=== PATIENT | female | born 1930 | race African-American/Black ===

== ENCOUNTER 2018-01-06 08:35 | Outpatient (CLI) | payer MEDICARE, BC ==
[2018-01-06 10:13] LABS: Hemoglobin 12.7 g/dL (12.0-16.0); Mean Corpuscular HGB CONC 32.9 g/dL (32.0-36.0); Mean Corpuscular Hemoglobin 31.8 pg (27.0-31.0); Mean Corpuscular Volume 96.6 fl (81.0-99.0); Mean Platelet Volume 6.6 fL (7.4-10.4); Platelet Count 192 thou/uL (130-400); RBC Distribution Width 12.1 % (11.5-14.5); Red Blood Cell (RBC) Count 4.01 mill/uL (4.20-5.40)
[2018-01-06 10:21] LABS: INR-International Normal Ratio 1.1; Prothrombin Time 13.9 SEC (12.0-14.7)
[2018-01-06 10:34] LABS: Anion Gap 9 mmol/L (10-20); BUN (Urea Nitrogen) 18 mg/dL (9.8-20.1); Calc. Creatinine Clearance 0 mL/min (70-130); Calcium 9.6 mg/dL (7.8-10.44); Carbon Dioxide 26 mmol/L (23-31); Chloride 107 mmol/L (98-107); Estimated GFR-MDRD 71; Glucose 80 mg/dL (83-110); Potassium 3.9 mmol/L (3.5-5.1); Sodium 138 mmol/L (136-145)
[2018-01-06 11:11] LABS: Bilirubin Negative (Negative); Blood, Urine Negative (Negative); Clarity CLOUDY (Clear); Glucose, Urine (Dipstick) Negative (Negative); Leukocyte Negative (Negative); Nitrite Negative (Negative); Protein, Urine (Dipstick) Negative (Neg-Trace); Specific Gravity, Urine 1.013 (1.002-1.036); Urobilinogen 0.2 mg/dL (0.2-1.0)
[2018-01-06 11:13] LABS: Bacteria/HPF 1+ HPF (None Seen); Hyaline Casts/LPF 0-3 HYALINE CAST LPF (0-3 Hyaline); Pathc Cast-AUWi Flag 0.72 (0-2.49); RBC/HPF 0-3 HPF (0-3)
== END 2018-01-06 08:36 | disposition home or self-care (01) ==
LOC: LABBT 08:35
PROVIDERS: ATTEND Orthopaedic Surgery
DX: Z01.818 Encounter for other preprocedural examination (principal); M17.12 Unilateral primary osteoarthritis, left knee
CPT/HCPCS: 80048; 81001; 85027; 85610; 86850; 86900; 86901; 87081

== ENCOUNTER 2018-03-04 12:14 | Outpatient (CLI) | payer MEDICARE, BC ==
[2018-03-04 14:03] LABS: Hemoglobin 10.9 g/dL (12.0-16.0); Mean Corpuscular HGB CONC 33.7 g/dL (32.0-36.0); Mean Corpuscular Hemoglobin 32.5 pg (27.0-31.0); Mean Corpuscular Volume 96.5 fL (78.0-98.0); Mean Platelet Volume 6.5 fL (7.4-10.4); Platelet Count 139 thou/uL (130-400); RBC Distribution Width 12.5 % (11.5-14.5); Red Blood Cell (RBC) Count 3.35 mill/uL (4.20-5.40)
[2018-03-04 14:07] LABS: INR-International Normal Ratio 1.1; Prothrombin Time 14.3 SEC (12.0-14.7)
[2018-03-04 14:10] LABS: Bilirubin Negative (Negative); Blood, Urine Negative (Negative); Clarity CLEAR (Clear); Glucose, Urine (Dipstick) Negative (Negative); Leukocyte Negative (Negative); Nitrite Negative (Negative); Protein, Urine (Dipstick) Negative (Neg-Trace); Specific Gravity, Urine 1.012 (1.002-1.036); Urobilinogen 0.2 mg/dL (0.2-1.0); pH, Urine 5.5 (5.0-9.0)
[2018-03-04 14:17] LABS: Hyaline Casts/LPF 0-3 HYALINE CAST LPF (0-3 Hyaline); Pathc Cast-AUWi Flag 0.72 (0-2.49); Squamous Epithelial 0-3 HPF (0-3); WBC/HPF 0-3 HPF (0-3)
[2018-03-04 14:26] LABS: Anion Gap 9 mmol/L (10-20); BUN (Urea Nitrogen) 19 mg/dL (9.8-20.1); Calc. Creatinine Clearance 0 mL/min (70-130); Calcium 9.5 mg/dL (7.8-10.44); Carbon Dioxide 26 mmol/L (23-31); Chloride 108 mmol/L (98-107); Estimated GFR-MDRD 63; Glucose 105 mg/dL (83-110); Potassium 3.4 mmol/L (3.5-5.1); Sodium 140 mmol/L (136-145)
[2018-03-04 14:35] LABS: Bacteria/HPF 1+ HPF (None Seen); RBC/HPF 0-3 HPF (0-3)
--- NOTE | 2018-03-05 14:03 | EKG ---
Test Reason : Blood Pressure : / mmHG Vent. Rate : 054 BPM Atrial Rate : 054 BPM P-R Int : 176 ms QRS Dur : 092 ms QT Int : 464 ms P-R-T Axes : 047 -04 027 degrees QTc Int : 440 ms Sinus bradycardia Voltage criteria for left ventricular hypertrophy Abnormal ECG Confirmed by SANDRA IQBAL ([id number]) on 03/05/2018 2:02:41 PM Referred By: IERO Confirmed By:SANDRA IQBAL
== END 2018-03-04 12:15 | disposition home or self-care (01) ==
LOC: LABBT 12:14
PROVIDERS: ATTEND Orthopaedic Surgery
DX: Z01.818 Encounter for other preprocedural examination (principal); M17.12 Unilateral primary osteoarthritis, left knee; R00.1 Bradycardia, unspecified
CPT/HCPCS: 80048; 81001; 85027; 85610; 86850; 86900; 86901; 87081; 93005; 93010

== ENCOUNTER 2018-03-04 13:30 | Inpatient (IN) | payer MEDICARE, BC ==
[2018-03-04 12:28] VITALS: BMI 29.0
[2018-03-09] MEDS ORDERED: Fentanyl 100 MCG/2 ML VIAL ONE ×2 (07:24→09:44)
[2018-03-09] MEDS ORDERED: Midazolam HCl 2 mg/2 ml Vial ONE (07:24)
[2018-03-09] MEDS ORDERED: Ropivacaine 0.2% HCl/PF 20 ML ONE (07:24)
[2018-03-09] MEDS ORDERED: Sodium Chloride 0.9% 100 ML ONE (08:19)
[2018-03-09] MEDS ORDERED: CEFAZOLIN/Water 2 GM/20 ML SYRINGE ONE (08:19)
[2018-03-09] MEDS ORDERED: Vancomycin HCl 1.5 GM in Sodium Chloride 0.9% 250 ML 300 ML IVPB SCH ×2 (08:30→21:00)
[2018-03-09] MEDS ORDERED: HYDROcodone/Acetaminophen 5/325 mg Tablet PO PRN ×2 (09:07)
[2018-03-09] MEDS ORDERED: Ondansetron HCl/PF 4 MG/2 ML Vial IVP PRN ×3 (09:07→12:20)
[2018-03-09] MEDS ORDERED: Promethazine HCl 25 MG/ML VIAL IM PRN ×3 (09:07→12:20)
[2018-03-09] MEDS ORDERED: Zolpidem Tartrate 5 MG TAB PO PRN ×2 (09:07→12:20)
[2018-03-09] MEDS ORDERED: traMADol HCl 50 MG TAB PO PRN ×2 (09:07)
[2018-03-09] MEDS ORDERED: Fentanyl 100 MCG/2 ML VIAL IV PRN (09:08)
[2018-03-09] MEDS ORDERED: Bupivacaine PF 0.5% 30 ML VIAL ONE (09:25)
[2018-03-09] MEDS ORDERED: Promethazine HCl 25 MG/ML VIAL SLOW IVP PRN (10:33)
--- NOTE | 2018-03-09 12:05 | OP ---
DATE OF PROCEDURE: 03/09/2018 PREOPERATIVE DIAGNOSES: Left knee osteoarthrosis with valgus deformity. POSTOPERATIVE DIAGNOSES: Left knee osteoarthrosis with valgus deformity. PROCEDURE PERFORMED: Left total knee replacement using [employer] pinless navigation. SURGEON: Jey Maria M.D. DRAPERY ESTIMATOR: Elliot Adamson PA-C. BLOOD LOSS: Minimal. COMPLICATIONS: None. ANESTHESIA: She had general anesthetic, she also had a preoperative block. IMPLANTS: To the left knee include a [employer] Triathlon knee system, the femur was a size 4 cruciate retaining femur. We used a size 3 universal tibial baseplate. We used a size 3, tibial bearing whic h was a CS tibial bearing and we used an asymmetric 29 x 9 X3 patella. DISPOSITION: She did go to the recovery room in stable condition. INDICATIONS: An 87-year-old female who had a right knee replaced and has done very well with that. At this time, her left knee is hurting her so bad that she is getting to the point where she could no t get around and at this time is wanting to have her knee replaced. PROCEDURE IN DETAIL: After all appropriate consent forms were explained and signed, the patient was t aken back to the Operating Room and at this time was given general anesthetic. Once the level of anes thesia was appropriate, a well-padded tourniquet was placed on the left leg and the leg was then prep ped and draped in standard surgical fashion. The limb was exsanguinated and tourniquet taken up to 30 0 mmHg. Midline incision was made with a 10 blade down through the skin and subcutaneous tissue. Bovi e electrocautery was used to coagulate any brisk venous bleeding. A new blade was used to make a medi al parapatellar arthrotomy. Small subperiosteal release was performed medially and excess fat pad was removed. The knee was flexed up to gain access to the femur. The femur was navigated and distal femo ral resection was made. Epicondylar access was used to align our sizing jig and this was pinned in pl lan. We sized our femur to be a size 4 cruciate retaining femur. 4:1 cutting block was applied and p inned. Anterior and posterior chamfer cuts were then made. We navigated out our proximal tibia and ma de our proximal tibial resection. Spreaders were used to remove any posterior osteophytes off the gabriela k of the femur as well as remaining meniscal tissue. A long alignment jodi was then used to achieve co rrect rotation of our tibial baseplate and a size 3 universal tibial baseplate was chosen. This was p inned in place. We trialed the polyethylene and a size 3 polyethylene gave us full extension and good stability throughout range of motion. Two towel clips and a saw were used to cut our patella. Three lug nuts were drilled and an asymmetric 29 x 9 X3 patella was trialed which sat nicely in the trochle ar groove. We then drilled our femur and punched our tibia. All components were removed. The knee was thoroughly irrigated and dried. Cement was mixed into the cement gun on the back table. Components w ere then placed. The knee was held out in full extension until the cement had dried. All excess bone cement was removed. Multiple #2 Vicryl stitches as well as a Quill was used to close our extensor me chanism. 0 Quill followed by a running Monoderm was then used to close the skin. Surgicel glue was th en used on the skin. Once this had dried, soft tissue dressing was applied to the limb, tourniquet wa s let down, and the toes pinked up nicely. The patient was then awakened and taken to the Recovery R oom in stable condition. All counts were correct at the end of the case. The patient did receive preo perative IV antibiotics. The patient was injected with Exparel for postoperative pain relief.
[2018-03-09] MEDS ORDERED: diphenhydrAMINE 25 MG CAP PO PRN (12:20)
[2018-03-09] MEDS ORDERED: HYDROcodone/Acetaminophen 10/325 mg Tablet PO PRN (12:20)
[2018-03-09] MEDS ORDERED: Tranexamic Acid 1,000 MG in Sodium Chloride 0.9% 100 ML IVPB SCH (12:30)
[2018-03-09] MEDS ORDERED: Ropivacaine 0.5% HCl/PF (150 MG/30 ML VIAL) ONE (13:28)
[2018-03-09] MEDS ORDERED: ePHEDrine/0.9% NaCl/PF SYRINGE 50 mg/10 ml ONE (13:54)
[2018-03-09] MEDS ORDERED: Ondansetron HCl/PF 4 MG/2 ML Vial ONE (13:54)
[2018-03-09] MEDS ORDERED: PROPOFOL 200 MG/20 ML VIAL ONE (13:54)
[2018-03-09] MEDS ORDERED: PHENYLEPHRINE-NS 100 MCG/ML 10 ML SYRINGE ONE (13:54)
[2018-03-09] MEDS ORDERED: Lidocaine 1% PF 5 ML VIAL ONE (13:54)
[2018-03-09] MEDS: Sodium Chloride 0.9% 1,000 ML IV SCH (14:22)
[2018-03-09] MEDS ORDERED: Loperamide HCl 2 MG CAP PO PRN (14:55)
[2018-03-09] MEDS ORDERED: Milk Of Magnesia 30 ML UDCUP PO PRN (14:55)
[2018-03-09] MEDS ORDERED: Artificial Tears 18 DROP/0.9 ML EA EYE PRN (14:55)
[2018-03-09] MEDS ORDERED: Diabetic Tussin 200 MG/10 ML UDCUP PO PRN (14:55)
[2018-03-09] MEDS ORDERED: hydrALAZINE 20 MG/ML VIAL SLOW IVP PRN (14:55)
[2018-03-09] MEDS ORDERED: Loratadine 10 MG TAB PO PRN (14:55)
[2018-03-09] MEDS ORDERED: Mag-Al 1200 mg/1200 mg/30 ML UDCUP PO PRN (14:55)
[2018-03-09] MEDS ORDERED: Senokot 8.6 MG TAB PO PRN (14:55)
[2018-03-09] MEDS ORDERED: Chloraseptic Spray 180 ml Bottle PO PRN (14:55)
[2018-03-09] MEDS ORDERED: Eucerin (Mineral Oil/Petrolatum,White) 30 gm Jar TOP PRN (14:55)
--- NOTE | 2018-03-09 15:08 | PDOC.PN ---
- Subjective Encounter Start Date: 03/09/18 Encounter Start Time: 15:06 -: old records requested/rev Patient seen and examined. No new complaints. No overnight events - Objective Resuscitation Status: Resuscitation Status FULL:Full Resuscitation MAR Reviewed: Yes Vital Signs & Weight: Weight Weight 180 lb Phys Exam - Physical Examination Constitutional: NAD HEENT: PERRLA, moist MMs, sclera anicteric Neck: no JVD, supple Respiratory: no wheezing, no rales, no rhonchi Cardiovascular: RRR, no significant murmur, no rub Gastrointestinal: soft, non-tender, no distention, positive bowel sounds Musculoskeletal: no edema, pulses present LEFT KNEE WITH DRESSING, NERVE BLOCK+ Neurological: non-focal, normal sensation, moves all 4 limbs Psychiatric: normal affect, A&O x 3 Skin: no rash, normal turgor Dx/Plan (1) Status post total left knee replacement Code(s): Z96.652 - PRESENCE OF LEFT ARTIFICIAL KNEE JOINT Status: Acute (2) Dyslipidemia Code(s): E78.5 - HYPERLIPIDEMIA, UNSPECIFIED Status: Chronic (3) GERD (gastroesophageal reflux disease) Code(s): K21.9 - GASTRO-ESOPHAGEAL REFLUX DISEASE WITHOUT ESOPHAGITIS Status: Chronic (4) Hypertension Code(s): I10 - ESSENTIAL (PRIMARY) HYPERTENSION Status: Chronic - Plan cont current plan of care, PT/OT * continue nerve block as per anesthesia * pain control with pain meds * continue PT/OT as per [facility] [place] protocol treatment * selected home medication reconciled * aspirin for DVT prophylaxis * pepcid as needed for GI prophylaxis. * code status- Full code * medication reviewed as below * symptomatic treatment * will monitor medical problems. Review of Systems - Review of Systems Eyes: negative: Pain, Vision Change, Conjunctivae Inflammation, Eyelid Inflammation, Redness, Other ENT: negative: Ear Pain, Ear Discharge, Nose Pain, Nose Discharge, Nose Congestion, Mouth Pain, Mouth Swelling, Throat Pain, Throat Swelling, Other Respiratory: negative: Cough, Dry, Shortness of Breath, Hemoptysis, SOB with Excertion, Pleuritic Pain, Sputum, Wheezing Cardiovascular: negative: chest pain, palpitations, orthopnea, paroxysmal nocturnal dyspnea, edema, light headedness, other Gastrointestinal: negative: Nausea, Vomiting, Abdominal Pain, Diarrhea, Constipation, Melena, Hematochezia, Other Genitourinary: negative: Dysuria, Frequency, Incontinence, Hematuria, Retention , Other Musculoskeletal: negative: Neck Pain, Shoulder Pain, Arm Pain, Back Pain, Hand Pain, Leg Pain, Foot Pain, Other Skin: negative: Rash, Lesions, Saurav, Bruising, Other - Medications/Allergies Allergies/Adverse Reactions: Allergies Allergy/AdvReac Type Severity Reaction Status Date / Time codeine Allergy "feel Verified 03/04/18 12:28 funny" Sulfa (Sulfonamide Allergy "feel Verified 03/04/18 12:28 Antibiotics) funny" Medications: Current Medications Acetaminophen (Tylenol) 650 mg PO Q4H PRN PRN Reason: HOOPER/ T > 101F; Mild Pain (1-3) Hydrocodone Bitart/Acetaminophen ([place] 10/325) 1 tab PO Q4H PRN PRN Reason: Moderate Pain (4-6) Hydrocodone Bitart/Acetaminophen ([place] 10/325) 2 tab PO Q4H PRN PRN Reason: Severe Pain (7-10) Al Hydroxide/Mg Hydroxide (Maalox) 15 ml PO Q4H PRN PRN Reason: Heartburn or Indigestion Artificial Tears (Tears Naturale) 0 drop EA EYE PRN PRN PRN Reason: Dry Eyes Aspirin (Ecotrin) 81 mg PO BID [facility] Atorvastatin Calcium (Lipitor) 20 mg PO DAILY [facility] Cefazolin Sodium (Ancef) 2 gm SLOW IVP 0200,1000,1800 [facility] Stop: 03/10/18 02:01 Diphenhydramine HCl (Benadryl) 25 mg PO Q6H PRN PRN Reason: Itching Famotidine (Pepcid) 20 mg PO DAILY [facility] Fentanyl (Sublimaze) 50 mcg IV Q1H PRN PRN Reason: .MODERATE-SEVERE PAIN Ferrous Gluconate (Fergon) 324 mg PO BID [facility] Guaifenesin (Robitussin Sf) 200 mg PO Q4H PRN PRN Reason: Cough Hydralazine HCl (Apresoline) 10 mg SLOW IVP Q4H PRN PRN Reason: Systolic BP > 180 Bupivacaine HCl 50 ml/ Sodium (Chloride) 100 mls @ 8 mls/hr NERVE BLCK INF [facility] Sodium Chloride (Normal Saline 0.9%) 1,000 mls @ 100 mls/hr IV .Q10H [facility] Last Admin: 03/09/18 14:22 Dose: Not Given Vancomycin HCl 1.5 gm/ Sodium (Chloride) 300 mls @ 200 mls/hr IVPB 2100 [facility] Stop: 03/09/18 22:29 Iron/Minerals/Multivitamins (Theragran M) 1 tab PO DAILY [facility] Loperamide HCl (Imodium) 2 mg PO PRN PRN PRN Reason: Diarrhea/Loose Stools Loratadine (Claritin) 10 mg PO DAILYPRN PRN PRN Reason: Sinus Symptoms Losartan Potassium (Cozaar) 100 mg PO DAILY [facility] Magnesium Hydroxide (Milk Of Magnesium) 30 ml PO DAILYPRN PRN PRN Reason: Constipation Mineral Oil/White Petrolatum (Eucerin Cream) 0 gm TOP BIDPRN PRN PRN Reason: Dry Skin Ondansetron HCl (Zofran) 4 mg IVP Q6H PRN PRN Reason: Nausea/Vomiting Ondansetron HCl (Zofran) 4 mg IVP Q6H PRN PRN Reason: Nausea/Vomiting Phenol (Chloraseptic [place] 180 Ml Bot) 0 ml PO PRN PRN PRN Reason: Sore Throat Promethazine HCl (Phenergan) 12.5 mg IM Q4H PRN PRN Reason: Nausea Promethazine HCl (Phenergan) 12.5 mg IM Q4H PRN PRN Reason: Nausea/Vomiting Senna (Senokot) 2 tab PO HSPRN PRN PRN Reason: Constipation Senna/Docusate Sodium (Senokot S) 2 tab PO BID [facility] Sodium Chloride (Flush - Normal Saline) 10 ml IVF PRN PRN PRN Reason: Saline Flush Tramadol HCl (Ultram) 50 mg PO Q6H PRN PRN Reason: Mild Pain (1-3) Tramadol HCl (Ultram) 100 mg PO Q6H PRN PRN Reason: Mild Pain (1-3) Zolpidem Tartrate (Ambien) 5 mg PO HSPRN PRN PRN Reason: Insomnia History of Present Illnes - History of Present Illness Reason for Visit: medical management History of Present Illness: left total knee replacement - Past Medical History Cardiac: HTN, Hyperlipidemia Gastrointestinal: GERD Musculoskeletal: Osteoarthritis - Past Surgical History Past Surgical History: Hysterectomy, Total Knee Replacement - Past Family History Family History: None - Past Social History Smoke: No Alcohol: None Drugs: None Lives: With Family
[2018-03-09] MEDS: HYDROcodone/Acetaminophen 10/325 mg Tablet PO PRN ×2 (16:05→20:57)
[2018-03-09] MEDS: CEFAZOLIN/Water 2 GM/20 ML SYRINGE SLOW IVP SCH (18:37)
[2018-03-09] MEDS: traMADol HCl 50 MG TAB PO PRN (18:47)
[2018-03-09] MEDS: Aspirin 81 mg Enteric Coated Tablet PO SCH (20:53)
[2018-03-09] MEDS: Ferrous Gluconate 324 MG TAB PO SCH (20:53)
[2018-03-09] MEDS: Senokot S 8.6-50 MG TAB PO SCH (20:53)
[2018-03-10] MEDS: CEFAZOLIN/Water 2 GM/20 ML SYRINGE SLOW IVP SCH (00:01)
[2018-03-10] MEDS: Bupivacaine 0.5% 50 ML in Sodium Chloride 0.9% 50 ML NERVE BLCK SCH ×2 (00:01→13:27)
[2018-03-10] MEDS: traMADol HCl 50 MG TAB PO PRN ×2 (06:21→22:29)
[2018-03-10 06:33] LABS: Hemoglobin 9.3 g/dL (12.0-16.0); Mean Corpuscular HGB CONC 33.9 g/dL (32.0-36.0); Mean Corpuscular Hemoglobin 32.8 pg (27.0-31.0); Mean Corpuscular Volume 96.9 fL (78.0-98.0); Mean Platelet Volume 6.6 fL (7.4-10.4); Platelet Count 122 thou/uL (130-400); RBC Distribution Width 12.7 % (11.5-14.5); Red Blood Cell (RBC) Count 2.83 mill/uL (4.20-5.40); White Blood Cell (WBC) Count 7.1 thou/uL (4.8-10.8)
[2018-03-10] MEDS: Losartan 25 MG TAB PO SCH (09:20)
[2018-03-10] MEDS: Senokot S 8.6-50 MG TAB PO SCH ×2 (09:21→20:16)
[2018-03-10] MEDS: Atorvastatin Calcium 20 MG TAB PO SCH (09:21)
[2018-03-10] MEDS: Ferrous Gluconate 324 MG TAB PO SCH ×2 (09:21→20:16)
[2018-03-10] MEDS: Multivitamin W/ Minerals 1 TAB PO SCH (09:21)
[2018-03-10] MEDS: Famotidine 20 MG TAB PO SCH (09:21)
[2018-03-10] MEDS: Aspirin 81 mg Enteric Coated Tablet PO SCH ×2 (09:21→20:16)
[2018-03-10] MEDS: Sodium Chloride 0.9% 1,000 ML IV SCH ×3 (09:22→20:16)
[2018-03-10] MEDS: HYDROcodone/Acetaminophen 10/325 mg Tablet PO PRN (09:33)
--- NOTE | 2018-03-10 11:12 | PDOC.PN ---
- Subjective Encounter Start Date: 03/10/18 Encounter Start Time: 07:40 Patient seen and examined. No new complaints. No overnight events - Objective Resuscitation Status: Resuscitation Status FULL:Full Resuscitation MAR Reviewed: Yes Vital Signs & Weight: Vital Signs (12 hours) Temp Pulse Resp BP BP Pulse Ox 03/10/18 08:00 99.2 F 66 18 157/76 H 98 03/10/18 04:12 98.2 F 68 16 146/77 H 98 03/10/18 00:00 99.1 F 62 16 138/74 96 Weight Weight 180 lb I&O: 03/09/18 03/10/18 03/11/18 06:59 06:59 06:59 Intake Total 2300 Output Total 1100 Balance 1200 Result Diagrams: 03/10/18 05:47 Phys Exam - Physical Examination Constitutional: NAD HEENT: PERRLA, moist MMs, sclera anicteric Neck: no JVD Respiratory: no wheezing, no rales, no rhonchi Cardiovascular: RRR, no significant murmur, no rub Gastrointestinal: soft, non-tender, no distention, positive bowel sounds Musculoskeletal: no edema, pulses present left knee with dressing and nerve block Neurological: non-focal, normal sensation Psychiatric: normal affect, A&O x 3 Skin: no rash, normal turgor Dx/Plan (1) Status post total left knee replacement Code(s): Z96.652 - PRESENCE OF LEFT ARTIFICIAL KNEE JOINT Status: Acute (2) Dyslipidemia Code(s): E78.5 - HYPERLIPIDEMIA, UNSPECIFIED Status: Chronic (3) GERD (gastroesophageal reflux disease) Code(s): K21.9 - GASTRO-ESOPHAGEAL REFLUX DISEASE WITHOUT ESOPHAGITIS Status: Chronic (4) Hypertension Code(s): I10 - ESSENTIAL (PRIMARY) HYPERTENSION Status: Chronic - Plan cont current plan of care, PT/OT * continue nerve block as per anesthesia * pain control with pain meds * continue PT/OT as per joint [place] protocol treatment * aspirin for DVT prophylaxis * pepcid as needed for GI prophylaxis. * medication reviewed as below * symptomatic treatment * medical problems are stable * discharge per primary team . Review of Systems - Review of Systems Eyes: negative: Pain, Vision Change, Conjunctivae Inflammation, Eyelid Inflammation, Redness, Other ENT: negative: Ear Pain, Ear Discharge, Nose Pain, Nose Discharge, Nose Congestion, Mouth Pain, Mouth Swelling, Throat Pain, Throat Swelling, Other Respiratory: negative: Cough, Dry, Shortness of Breath, Hemoptysis, SOB with Excertion, Pleuritic Pain, Sputum, Wheezing Cardiovascular: negative: chest pain, palpitations, orthopnea, paroxysmal nocturnal dyspnea, edema, light headedness, other Gastrointestinal: negative: Nausea, Vomiting, Abdominal Pain, Diarrhea, Constipation, Melena, Hematochezia, Other Genitourinary: negative: Dysuria, Frequency, Incontinence, Hematuria, Retention , Other Musculoskeletal: negative: Neck Pain, Shoulder Pain, Arm Pain, Back Pain, Hand Pain, Leg Pain, Foot Pain, Other Skin: negative: Rash, Lesions, Saurav, Bruising, Other - Medications/Allergies Allergies/Adverse Reactions: Allergies Allergy/AdvReac Type Severity Reaction Status Date / Time codeine Allergy "feel Verified 03/04/18 12:28 funny" Sulfa (Sulfonamide Allergy "feel Verified 03/04/18 12:28 Antibiotics) funny" Medications: Current Medications Acetaminophen (Tylenol) 650 mg PO Q4H PRN PRN Reason: HOOPER/ T > 101F; Mild Pain (1-3) Hydrocodone Bitart/Acetaminophen ([place] 10/325) 1 tab PO Q4H PRN PRN Reason: Moderate Pain (4-6) Last Admin: 03/10/18 09:33 Dose: 1 tab Hydrocodone Bitart/Acetaminophen ([place] 10/325) 2 tab PO Q4H PRN PRN Reason: Severe Pain (7-10) Al Hydroxide/Mg Hydroxide (Maalox) 15 ml PO Q4H PRN PRN Reason: Heartburn or Indigestion Artificial Tears (Tears Naturale) 0 drop EA EYE PRN PRN PRN Reason: Dry Eyes Aspirin (Ecotrin) 81 mg PO BID [facility] Last Admin: 03/10/18 09:21 Dose: 81 mg Atorvastatin Calcium (Lipitor) 20 mg PO DAILY [facility] Last Admin: 03/10/18 09:21 Dose: 20 mg Diphenhydramine HCl (Benadryl) 25 mg PO Q6H PRN PRN Reason: Itching Last Admin: 03/10/18 00:09 Dose: 25 mg Famotidine (Pepcid) 20 mg PO DAILY [facility] Last Admin: 03/10/18 09:21 Dose: 20 mg Fentanyl (Sublimaze) 50 mcg IV Q1H PRN PRN Reason: .MODERATE-SEVERE PAIN Ferrous Gluconate (Fergon) 324 mg PO BID [facility] Last Admin: 03/10/18 09:21 Dose: 324 mg Guaifenesin (Robitussin Sf) 200 mg PO Q4H PRN PRN Reason: Cough Hydralazine HCl (Apresoline) 10 mg SLOW IVP Q4H PRN PRN Reason: Systolic BP > 180 Bupivacaine HCl 50 ml/ Sodium (Chloride) 100 mls @ 8 mls/hr NERVE BLCK INF [facility] Last Admin: 03/10/18 00:01 Dose: 100 mls Sodium Chloride (Normal Saline 0.9%) 1,000 mls @ 100 mls/hr IV .Q10H [facility] Last Admin: 03/10/18 09:22 Dose: Not Given Iron/Minerals/Multivitamins (Theragran M) 1 tab PO DAILY [facility] Last Admin: 03/10/18 09:21 Dose: 1 tab Loperamide HCl (Imodium) 2 mg PO PRN PRN PRN Reason: Diarrhea/Loose Stools Loratadine (Claritin) 10 mg PO DAILYPRN PRN PRN Reason: Sinus Symptoms Losartan Potassium (Cozaar) 100 mg PO DAILY [facility] Last Admin: 03/10/18 09:20 Dose: 100 mg Magnesium Hydroxide (Milk Of Magnesium) 30 ml PO DAILYPRN PRN PRN Reason: Constipation Mineral Oil/White Petrolatum (Eucerin Cream) 0 gm TOP BIDPRN PRN PRN Reason: Dry Skin Ondansetron HCl (Zofran) 4 mg IVP Q6H PRN PRN Reason: Nausea/Vomiting Last Admin: 03/10/18 10:19 Dose: 4 mg Phenol (Chloraseptic [place] 180 Ml Bot) 0 ml PO PRN PRN PRN Reason: Sore Throat Promethazine HCl (Phenergan) 12.5 mg IM Q4H PRN PRN Reason: Nausea/Vomiting Senna (Senokot) 2 tab PO HSPRN PRN PRN Reason: Constipation Senna/Docusate Sodium (Senokot S) 2 tab PO BID [facility] Last Admin: 03/10/18 09:21 Dose: 2 tab Sodium Chloride (Flush - Normal Saline) 10 ml IVF PRN PRN PRN Reason: Saline Flush Last Admin: 03/10/18 10:20 Dose: 10 ml Tramadol HCl (Ultram) 50 mg PO Q6H PRN PRN Reason: Mild Pain (1-3) Tramadol HCl (Ultram) 100 mg PO Q6H PRN PRN Reason: Mild Pain (1-3) Last Admin: 03/10/18 06:21 Dose: 100 mg Zolpidem Tartrate (Ambien) 5 mg PO HSPRN PRN PRN Reason: Insomnia
--- NOTE | 2018-03-10 13:04 | PRG ---
DATE OF SERVICE: 03/10/2018 SUBJECTIVE: Mari is an 87-year-old female, who is postop day #1 from left total knee arthroplasty. She is comfortable this morning. She has very little in the way of complaints. The patient states t hat she would like to go home in the next couple of days. She ambulated approximately 6 or 8 feet ye evening. OBJECTIVE: VITAL SIGNS: Temperature 96, pulse 61, respiratory rate 18, blood pressure 145/84. GENERAL: She is alert and oriented to person, place, time, and situation. She is grossly nonfocal a nd she is neurovascularly intact in both lower extremities. LABORATORY DATA: Her hemoglobin and hematocrit 9.3 and 27.4 (she has preexisting preoperative anemia ). ASSESSMENT: An 87-year-old female, 1. Postoperative day #1 left total knee arthroplasty. 2. Preoperative anemia, suspect anemia of chronic disease. PLAN: Continue current care. She would like to return home in the next day or two, but let us see h ow she does with physical therapy in terms of distance and independence to decide whether or not she would be an appropriate home discharge.
[2018-03-11] MEDS: Bupivacaine 0.5% 50 ML in Sodium Chloride 0.9% 50 ML NERVE BLCK SCH ×2 (02:10→18:28)
[2018-03-11] MEDS: Sodium Chloride 0.9% 1,000 ML IV SCH ×2 (03:38→16:02)
[2018-03-11 06:07] LABS: Hemoglobin 9.3 g/dL (12.0-16.0); Mean Corpuscular HGB CONC 33.6 g/dL (32.0-36.0); Mean Corpuscular Hemoglobin 32.7 pg (27.0-31.0); Mean Corpuscular Volume 97.1 fL (78.0-98.0); Mean Platelet Volume 6.5 fL (7.4-10.4); Platelet Count 118 thou/uL (130-400); RBC Distribution Width 12.5 % (11.5-14.5); Red Blood Cell (RBC) Count 2.83 mill/uL (4.20-5.40); White Blood Cell (WBC) Count 9.2 thou/uL (4.8-10.8)
[2018-03-11] MEDS: Aspirin 81 mg Enteric Coated Tablet PO SCH ×2 (08:58→22:38)
[2018-03-11] MEDS: Atorvastatin Calcium 20 MG TAB PO SCH (08:58)
[2018-03-11] MEDS: traMADol HCl 50 MG TAB PO PRN (08:59)
[2018-03-11] MEDS: Ferrous Gluconate 324 MG TAB PO SCH ×2 (08:59→22:38)
[2018-03-11] MEDS: Multivitamin W/ Minerals 1 TAB PO SCH (08:59)
[2018-03-11] MEDS: Senokot S 8.6-50 MG TAB PO SCH ×2 (08:59→22:39)
[2018-03-11] MEDS: Famotidine 20 MG TAB PO SCH (09:00)
[2018-03-11] MEDS: Losartan 25 MG TAB PO SCH (09:01)
--- NOTE | 2018-03-11 10:12 | PDOC.PN ---
- Subjective Encounter Start Date: 03/11/18 Encounter Start Time: 08:00 Patient seen and examined. No new complaints. No overnight events - Objective Resuscitation Status: Resuscitation Status FULL:Full Resuscitation MAR Reviewed: Yes Vital Signs & Weight: Vital Signs (12 hours) Temp Pulse Resp BP BP Pulse Ox 03/11/18 08:14 98.8 F 76 16 138/81 94 L 03/11/18 03:45 98.6 F 66 16 144/84 H 98 03/11/18 00:00 98.1 F 66 16 151/87 H 97 Weight Admit Weight 180 lb Weight 180 lb I&O: 03/10/18 03/11/18 03/12/18 06:59 06:59 06:59 Intake Total 2300 1120 Output Total 1100 850 Balance 1200 270 Result Diagrams: 03/11/18 05:21 Phys Exam - Physical Examination Constitutional: NAD HEENT: PERRLA, moist MMs, sclera anicteric Neck: no JVD, supple Respiratory: no wheezing, no rales, no rhonchi Cardiovascular: RRR, no significant murmur, no rub Gastrointestinal: soft, non-tender, no distention, positive bowel sounds Musculoskeletal: no edema, pulses present left knee with dressing and nerve block+ Neurological: non-focal, normal sensation, moves all 4 limbs Psychiatric: normal affect, A&O x 3 Skin: no rash, normal turgor Dx/Plan (1) Status post total left knee replacement Code(s): Z96.652 - PRESENCE OF LEFT ARTIFICIAL KNEE JOINT Status: Acute (2) Dyslipidemia Code(s): E78.5 - HYPERLIPIDEMIA, UNSPECIFIED Status: Chronic (3) GERD (gastroesophageal reflux disease) Code(s): K21.9 - GASTRO-ESOPHAGEAL REFLUX DISEASE WITHOUT ESOPHAGITIS Status: Chronic (4) Hypertension Code(s): I10 - ESSENTIAL (PRIMARY) HYPERTENSION Status: Chronic - Plan cont current plan of care, PT/OT, social worker aide * continue nerve block as per anesthesia * pain control with pain meds * continue PT/OT as per [facility] protocol treatment * aspirin for DVT prophylaxis * protonix as needed for GI prophylaxis. * medication reviewed as below * symptomatic treatment * medical problems are stable * discharge per primary team . * may need SNU placement Review of Systems - Review of Systems Eyes: negative: Pain, Vision Change, Conjunctivae Inflammation, Eyelid Inflammation, Redness, Other ENT: negative: Ear Pain, Ear Discharge, Nose Pain, Nose Discharge, Nose Congestion, Mouth Pain, Mouth Swelling, Throat Pain, Throat Swelling, Other Respiratory: negative: Cough, Dry, Shortness of Breath, Hemoptysis, SOB with Excertion, Pleuritic Pain, Sputum, Wheezing Cardiovascular: negative: chest pain, palpitations, orthopnea, paroxysmal nocturnal dyspnea, edema, light headedness, other Gastrointestinal: negative: Nausea, Vomiting, Abdominal Pain, Diarrhea, Constipation, Melena, Hematochezia, Other Genitourinary: negative: Dysuria, Frequency, Incontinence, Hematuria, Retention , Other Musculoskeletal: negative: Neck Pain, Shoulder Pain, Arm Pain, Back Pain, Hand Pain, Leg Pain, Foot Pain, Other Skin: negative: Rash, Lesions, Saurav, Bruising, Other - Medications/Allergies Allergies/Adverse Reactions: Allergies Allergy/AdvReac Type Severity Reaction Status Date / Time codeine Allergy "feel Verified 03/04/18 12:28 funny" Sulfa (Sulfonamide Allergy "feel Verified 03/04/18 12:28 Antibiotics) funny" Medications: Current Medications Acetaminophen (Tylenol) 650 mg PO Q4H PRN PRN Reason: HOOPER/ T > 101F; Mild Pain (1-3) Hydrocodone Bitart/Acetaminophen ([place] 10/325) 1 tab PO Q4H PRN PRN Reason: Moderate Pain (4-6) Last Admin: 03/10/18 09:33 Dose: 1 tab Hydrocodone Bitart/Acetaminophen ([place] 10/325) 2 tab PO Q4H PRN PRN Reason: Severe Pain (7-10) Al Hydroxide/Mg Hydroxide (Maalox) 15 ml PO Q4H PRN PRN Reason: Heartburn or Indigestion Artificial Tears (Tears Naturale) 0 drop EA EYE PRN PRN PRN Reason: Dry Eyes Aspirin (Ecotrin) 81 mg PO BID [facility] Last Admin: 03/11/18 08:58 Dose: 81 mg Atorvastatin Calcium (Lipitor) 20 mg PO DAILY [facility] Last Admin: 03/11/18 08:58 Dose: 20 mg Diphenhydramine HCl (Benadryl) 25 mg PO Q6H PRN PRN Reason: Itching Last Admin: 03/10/18 00:09 Dose: 25 mg Famotidine (Pepcid) 20 mg PO DAILY [facility] Last Admin: 03/11/18 09:00 Dose: 20 mg Fentanyl (Sublimaze) 50 mcg IV Q1H PRN PRN Reason: .MODERATE-SEVERE PAIN Ferrous Gluconate (Fergon) 324 mg PO BID [facility] Last Admin: 03/11/18 08:59 Dose: 324 mg Guaifenesin (Robitussin Sf) 200 mg PO Q4H PRN PRN Reason: Cough Hydralazine HCl (Apresoline) 10 mg SLOW IVP Q4H PRN PRN Reason: Systolic BP > 180 Bupivacaine HCl 50 ml/ Sodium (Chloride) 100 mls @ 8 mls/hr NERVE BLCK INF [facility] Last Admin: 03/11/18 02:10 Dose: 100 mls Sodium Chloride (Normal Saline 0.9%) 1,000 mls @ 100 mls/hr IV .Q10H [facility] Last Admin: 03/11/18 03:38 Dose: Not Given Iron/Minerals/Multivitamins (Theragran M) 1 tab PO DAILY [facility] Last Admin: 03/11/18 08:59 Dose: 1 tab Loperamide HCl (Imodium) 2 mg PO PRN PRN PRN Reason: Diarrhea/Loose Stools Loratadine (Claritin) 10 mg PO DAILYPRN PRN PRN Reason: Sinus Symptoms Losartan Potassium (Cozaar) 100 mg PO DAILY [facility] Last Admin: 03/11/18 09:01 Dose: 100 mg Magnesium Hydroxide (Milk Of Magnesium) 30 ml PO DAILYPRN PRN PRN Reason: Constipation Mineral Oil/White Petrolatum (Eucerin Cream) 0 gm TOP BIDPRN PRN PRN Reason: Dry Skin Ondansetron HCl (Zofran) 4 mg IVP Q6H PRN PRN Reason: Nausea/Vomiting Last Admin: 03/10/18 10:19 Dose: 4 mg Phenol (Chloraseptic [place] 180 Ml Bot) 0 ml PO PRN PRN PRN Reason: Sore Throat Promethazine HCl (Phenergan) 12.5 mg IM Q4H PRN PRN Reason: Nausea/Vomiting Senna (Senokot) 2 tab PO HSPRN PRN PRN Reason: Constipation Senna/Docusate Sodium (Senokot S) 2 tab PO BID [facility] Last Admin: 03/11/18 08:59 Dose: 2 tab Sodium Chloride (Flush - Normal Saline) 10 ml IVF PRN PRN PRN Reason: Saline Flush Last Admin: 03/10/18 10:20 Dose: 10 ml Tramadol HCl (Ultram) 50 mg PO Q6H PRN PRN Reason: Mild Pain (1-3) Tramadol HCl (Ultram) 100 mg PO Q6H PRN PRN Reason: Mild Pain (1-3) Last Admin: 03/11/18 08:59 Dose: 100 mg Zolpidem Tartrate (Ambien) 5 mg PO HSPRN PRN PRN Reason: Insomnia
--- NOTE | 2018-03-11 13:06 | DIS ---
DATE OF ADMISSION: 03/09/2018 DATE OF DISCHARGE: 03/11/2018 PRIMARY CARE PHYSICIAN: Dr. Alfredo Bauer. DISCHARGE DISPOSITION: Home/ . PRIMARY DISCHARGE DIAGNOSIS: Status post left total knee replacement. SECONDARY DISCHARGE DIAGNOSES: Dyslipidemia, gastroesophageal reflux disease, hypertension. PRIMARY PROCEDURE/OPERATION: Left total knee replacement. RADIOLOGICAL INVESTIGATION: None. SIGNIFICANT LABORATORY DATA: Hemoglobin 9.3. DISCHARGE MEDICATIONS: Aspirin 81 mg p.o. b.i.d. for DVT prophylaxis, Lipitor 20 mg p.o. daily, losartan 100 mg p.o. daily, fish oil 1 capsule daily, ranitidine 150 mg p.o. daily. Pain medication as per primary team. CONTRAINDICATIONS: None. CODE STATUS: Full code. INPATIENT CONSULTANTS: Dr. Maria was primary while in hospital. [facility] Team was consulted for medical comanagement. TEST RESULTS PENDING ON DISCHARGE: None. ALLERGIES: CODEINE and SULFA DRUGS. DISCHARGE PLAN: Post hospital, the patient will follow up with the [facility] and the patient has appointment with Dr. Maria on 03/17/2018 at 9:45 a.m. HOSPITAL COURSE: An 87-year-old female with above-mentioned medical problem who was admitted by Dr. Maria for left total knee replacement, which was done on 03/09/2018 without any complication. Postoperatively, at [facility], Margarita team was consulted for medical comanagement. The patient's medical problem remained stable. She did very well while in hospital. We continued all her previous home medications. We also continued similar home medication upon discharge. The patient requiring SNU placement and that is why with help of counter caser she is planned for discharging to [facility]. The patient is seen and examined at bedside today. Please see my progress note from today for further detail. We will sign off. HARRIETT
[2018-03-11] MEDS: Acetaminophen 325 MG TAB PO PRN (22:38)
[2018-03-12] MEDS: Sodium Chloride 0.9% 1,000 ML IV SCH ×2 (00:21→14:05)
[2018-03-12 06:39] LABS: Mean Corpuscular HGB CONC 34.7 g/dL (32.0-36.0); Mean Corpuscular Hemoglobin 33.5 pg (27.0-31.0); Mean Corpuscular Volume 96.4 fL (78.0-98.0); Mean Platelet Volume 8.2 fL (7.4-10.4); Platelet Count 130 thou/uL (130-400); RBC Distribution Width 12.6 % (11.5-14.5); White Blood Cell (WBC) Count 8.7 thou/uL (4.8-10.8)
[2018-03-12] MEDS: Bupivacaine 0.5% 50 ML in Sodium Chloride 0.9% 50 ML NERVE BLCK SCH (08:43)
[2018-03-12] MEDS: Aspirin 81 mg Enteric Coated Tablet PO SCH (08:50)
[2018-03-12] MEDS: Losartan 25 MG TAB PO SCH (08:50)
[2018-03-12] MEDS: Senokot S 8.6-50 MG TAB PO SCH (08:51)
[2018-03-12] MEDS: Famotidine 20 MG TAB PO SCH (08:51)
[2018-03-12] MEDS: Ferrous Gluconate 324 MG TAB PO SCH (08:51)
[2018-03-12] MEDS: Multivitamin W/ Minerals 1 TAB PO SCH (08:51)
[2018-03-12] MEDS: Atorvastatin Calcium 20 MG TAB PO SCH (08:51)
--- NOTE | 2018-03-12 11:39 | PDOC.PN ---
- Subjective Encounter Start Date: 03/12/18 Encounter Start Time: 07:50 Patient seen and examined. No new complaints. No overnight events - Objective Resuscitation Status: Resuscitation Status FULL:Full Resuscitation MAR Reviewed: Yes Vital Signs & Weight: Vital Signs (12 hours) Temp Pulse Resp BP BP Pulse Ox 03/12/18 08:00 98.6 F 65 16 95 03/12/18 07:50 98.6 F 65 16 137/84 100 03/12/18 03:50 98.0 F 71 16 100 03/12/18 03:43 98.8 F 72 18 125/78 100 03/12/18 03:39 72 125/78 03/11/18 23:57 99.8 F H 71 16 126/77 97 Weight Admit Weight 180 lb Weight 180 lb I&O: 03/11/18 03/12/18 03/13/18 06:59 06:59 06:59 Intake Total 1120 1280 Output Total 850 825 Balance 270 455 Result Diagrams: 03/12/18 05:36 Phys Exam - Physical Examination Constitutional: NAD HEENT: PERRLA, moist MMs, sclera anicteric Neck: no JVD, supple Respiratory: no wheezing, no rales, no rhonchi Cardiovascular: RRR, no significant murmur, no rub Gastrointestinal: soft, non-tender, no distention, positive bowel sounds Musculoskeletal: no edema, pulses present Neurological: non-focal, normal sensation, moves all 4 limbs Psychiatric: normal affect, A&O x 3 Skin: no rash, normal turgor Dx/Plan (1) Status post total left knee replacement Code(s): Z96.652 - PRESENCE OF LEFT ARTIFICIAL KNEE JOINT Status: Acute (2) Dyslipidemia Code(s): E78.5 - HYPERLIPIDEMIA, UNSPECIFIED Status: Chronic (3) GERD (gastroesophageal reflux disease) Code(s): K21.9 - GASTRO-ESOPHAGEAL REFLUX DISEASE WITHOUT ESOPHAGITIS Status: Chronic (4) Hypertension Code(s): I10 - ESSENTIAL (PRIMARY) HYPERTENSION Status: Chronic - Plan cont current plan of care, PT/OT, 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 Review of Systems - Review of Systems Eyes: negative: Pain, Vision Change, Conjunctivae Inflammation, Eyelid Inflammation, Redness, Other ENT: negative: Ear Pain, Ear Discharge, Nose Pain, Nose Discharge, Nose Congestion, Mouth Pain, Mouth Swelling, Throat Pain, Throat Swelling, Other Respiratory: negative: Cough, Dry, Shortness of Breath, Hemoptysis, SOB with Excertion, Pleuritic Pain, Sputum, Wheezing Cardiovascular: negative: chest pain, palpitations, orthopnea, paroxysmal nocturnal dyspnea, edema, light headedness, other Gastrointestinal: negative: Nausea, Vomiting, Abdominal Pain, Diarrhea, Constipation, Melena, Hematochezia, Other Genitourinary: negative: Dysuria, Frequency, Incontinence, Hematuria, Retention , Other Musculoskeletal: negative: Neck Pain, Shoulder Pain, Arm Pain, Back Pain, Hand Pain, Leg Pain, Foot Pain, Other Skin: negative: Rash, Lesions, Saurav, Bruising, Other - Medications/Allergies Allergies/Adverse Reactions: Allergies Allergy/AdvReac Type Severity Reaction Status Date / Time codeine Allergy "feel Verified 03/04/18 12:28 funny" Sulfa (Sulfonamide Allergy "feel Verified 03/04/18 12:28 Antibiotics) funny" Medications: Current Medications Acetaminophen (Tylenol) 650 mg PO Q4H PRN PRN Reason: HOOPER/ T > 101F; Mild Pain (1-3) Last Admin: 03/11/18 22:38 Dose: 650 mg Hydrocodone Bitart/Acetaminophen ([place] 10/325) 1 tab PO Q4H PRN PRN Reason: Moderate Pain (4-6) Last Admin: 03/10/18 09:33 Dose: 1 tab Hydrocodone Bitart/Acetaminophen ([place] 10/325) 2 tab PO Q4H PRN PRN Reason: Severe Pain (7-10) Al Hydroxide/Mg Hydroxide (Maalox) 15 ml PO Q4H PRN PRN Reason: Heartburn or Indigestion Artificial Tears (Tears Naturale) 0 drop EA EYE PRN PRN PRN Reason: Dry Eyes Aspirin (Ecotrin) 81 mg PO BID [facility] Last Admin: 03/12/18 08:50 Dose: 81 mg Atorvastatin Calcium (Lipitor) 20 mg PO DAILY [facility] Last Admin: 03/12/18 08:51 Dose: 20 mg Diphenhydramine HCl (Benadryl) 25 mg PO Q6H PRN PRN Reason: Itching Last Admin: 03/10/18 00:09 Dose: 25 mg Famotidine (Pepcid) 20 mg PO DAILY [facility] Last Admin: 03/12/18 08:51 Dose: 20 mg Fentanyl (Sublimaze) 50 mcg IV Q1H PRN PRN Reason: .MODERATE-SEVERE PAIN Ferrous Gluconate (Fergon) 324 mg PO BID [facility] Last Admin: 03/12/18 08:51 Dose: 324 mg Guaifenesin (Robitussin Sf) 200 mg PO Q4H PRN PRN Reason: Cough Hydralazine HCl (Apresoline) 10 mg SLOW IVP Q4H PRN PRN Reason: Systolic BP > 180 Bupivacaine HCl 50 ml/ Sodium (Chloride) 100 mls @ 8 mls/hr NERVE BLCK INF [facility] Last Admin: 03/12/18 08:43 Dose: 100 mls Sodium Chloride (Normal Saline 0.9%) 1,000 mls @ 100 mls/hr IV .Q10H [facility] Last Admin: 03/12/18 00:21 Dose: Not Given Iron/Minerals/Multivitamins (Theragran M) 1 tab PO DAILY [facility] Last Admin: 03/12/18 08:51 Dose: 1 tab Loperamide HCl (Imodium) 2 mg PO PRN PRN PRN Reason: Diarrhea/Loose Stools Loratadine (Claritin) 10 mg PO DAILYPRN PRN PRN Reason: Sinus Symptoms Losartan Potassium (Cozaar) 100 mg PO DAILY [facility] Last Admin: 03/12/18 08:50 Dose: 100 mg Magnesium Hydroxide (Milk Of Magnesium) 30 ml PO DAILYPRN PRN PRN Reason: Constipation Mineral Oil/White Petrolatum (Eucerin Cream) 0 gm TOP BIDPRN PRN PRN Reason: Dry Skin Ondansetron HCl (Zofran) 4 mg IVP Q6H PRN PRN Reason: Nausea/Vomiting Last Admin: 03/10/18 10:19 Dose: 4 mg Phenol (Chloraseptic [place] 180 Ml Bot) 0 ml PO PRN PRN PRN Reason: Sore Throat Promethazine HCl (Phenergan) 12.5 mg IM Q4H PRN PRN Reason: Nausea/Vomiting Senna (Senokot) 2 tab PO HSPRN PRN PRN Reason: Constipation Senna/Docusate Sodium (Senokot S) 2 tab PO BID [facility] Last Admin: 03/12/18 08:51 Dose: 2 tab Sodium Chloride (Flush - Normal Saline) 10 ml IVF PRN PRN PRN Reason: Saline Flush Last Admin: 03/10/18 10:20 Dose: 10 ml Tramadol HCl (Ultram) 50 mg PO Q6H PRN PRN Reason: Mild Pain (1-3) Tramadol HCl (Ultram) 100 mg PO Q6H PRN PRN Reason: Mild Pain (1-3) Last Admin: 03/11/18 08:59 Dose: 100 mg Zolpidem Tartrate (Ambien) 5 mg PO HSPRN PRN PRN Reason: Insomnia
--- NOTE | 2018-03-12 11:41 | ADD-DIS ---
ADDENDUM This patient is seen and examined at bedside today. Please see my discharge summary dictated yesterd ay for more detail. This patient is planned for discharging to custodial home. Yesterday, she did not have any place to go. Hopefully, today, she has approval for [facility] bed. Otherwis e, she did very well. She has anemia which remained stable while in hospital. The patient is seen a nd examined at bedside today. Please see my progress note from today for further detail and please s ee my discharge summary dictated yesterday for more detail.
[2018-03-12 11:44] VITALS: BP 148/76; TEMP 97.7
[2018-03-12] MEDS: Acetaminophen 325 MG TAB PO PRN (11:48)
== END 2018-03-12 12:05 | disposition swing bed (61) | DRG 470 ==
LOC: SURG A 03-09 06:22 → SJJU 03-09 13:22
PROVIDERS: ADMIT Orthopaedic Surgery; ATTEND Orthopaedic Surgery
PROC: 0SRD0J9 Replacement of Left Knee Joint with Synthetic Substitute, Cemented, Open Approach (ICD-10-PCS; principal; 2018-03-09)
DX: M17.12 Unilateral primary osteoarthritis, left knee (principal); D64.9 Anemia, unspecified; E78.5 Hyperlipidemia, unspecified; K21.9 Gastro-esophageal reflux disease without esophagitis; Z88.5 Allergy status to narcotic agent; Z88.2 Allergy status to sulfonamides
CPT/HCPCS: 36415; 85027; C1713; C1776; G8978-GP-CM; G8979-GP-CK; J2001; J2250; J2405; J2704; J2795; J3010; J3370; J3490; J7050; S0020